=== PATIENT | female | born 1985 ===

== ENCOUNTER 2021-05-03 07:57 | Emergency (ER) | payer MEDICAID, OTHER ==
[~2021-05-03] VITALS: Ht 157.5 cm; Wt 74.8 kg
[2021-05-03 08:50] LABS: Urine Bacteria NONE SEEN /hpf (None Seen); Urine Blood Negative /uL (Negative); Urine Specific Gravity 1.024 (1.001-1.035); Urine WBC 7 /hpf (0 - 5)
[2021-05-03 09:29] LABS: Basophils # (auto) 0 10 ^3/uL (0-0.2); Basophils % (auto) 0.3 % (0.0-2.0); Eosinophils # (auto) 0.1 10 ^3/uL (0-0.8); Eosinophils % (auto) 0.6 % (0.0-7.0); Hematocrit 42.8 % (36.0-46.0); Hemoglobin 14.4 g/dL (12.2-16.2); Lymphocytes % (auto) 16.9 % (10.0-50.0); Mean Corpuscular Hgb Conc. 33.6 g/dL (32.0-36.0); Mean Corpuscular Volume 92.3 fL (80.0-100.0); Monocytes % (auto) 8.1 % (0.0-12.0); Neutrophils # (auto) 8.8 10 ^3/uL (1.6-8.6); Neutrophils % (auto) 74.1 % (37.0-80.0); Red Blood Cells 4.64 10^6/uL (4.0-5.20); Red Cell Distribution Width 14.1 % (11.8-14.3); White Blood Cell 11.8 10^3/uL (4.4-10.8)
[2021-05-03 09:47] LABS: Albumin 3.5 g/dL (3.4-5.0)
[2021-05-03 09:51] LABS: BUN/Creatinine Ratio 20.7; Bilirubin, Total 0.4 mg/dL (0.2-1.0); Total Protein 7.7 g/dL (6.4-8.2)
[2021-05-03 10:47] VITALS: BP 121/76
== END 2021-05-03 10:50 | disposition home or self-care (01) ==
LOC: ER 07:57
DX: N39.0 Urinary tract infection, site not specified (principal); J18.9 Pneumonia, unspecified organism
CPT/HCPCS: 36415; 74176; 80053; 81001; 81025; 85025

== ENCOUNTER → 2021-05-04 | Emergency (ER) | payer MEDICAID ==
[~2021-05-04] VITALS: Ht 157.5 cm; Wt 74.8 kg
[2021-05-04 23:01] VITALS: BP 113/59
== END | disposition home or self-care (01) ==
LOC: ER 22:02
DX: M79.10 Myalgia, unspecified site (principal); N39.0 Urinary tract infection, site not specified; J18.9 Pneumonia, unspecified organism; E66.9 Obesity, unspecified; Z68.34 Body mass index [BMI] 34.0-34.9, adult